=== PATIENT | female | born 1965 | race American Indian/Alaskan Native ===

== ENCOUNTER 2018-12-07 12:18 | Emergency (ER) | payer OTHER ==
[2018-12-07 12:53] VITALS: BP 106/67
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
[2018-12-07] MEDS ORDERED: IBUPROFEN PO ONE (15:17)
== END 2018-12-07 15:36 | disposition home or self-care (01) ==
LOC: ED 12:18
DX: M54.5 Low back pain (principal); M54.2 Cervicalgia; V89.2XXA Person injured in unspecified motor-vehicle accident, traffic, initial encounter; Y93.89 Activity, other specified; Y92.89 Other specified places as the place of occurrence of the external cause; Y99.8 Other external cause status
CPT/HCPCS: 72040; 72100